=== PATIENT | female | born 1945 | race American Indian/Alaskan Native ===

== ENCOUNTER 2018-06-03 10:22 | Emergency (ER) | payer MEDICARE ==
--- NOTE | 2018-06-03 12:44 | Emergency Department Report ---
ED Lower Extremity HPI - General Chief Complaint: Extremity Injury, Lower Stated Complaint: RT LEG PAIN Time Seen by Provider: 06/03/18 11:55 Source: patient, family Mode of arrival: Wheelchair Limitations: Physical Limitation - History of Present Illness Initial Comments: [id number] female to emergency Department complaining of pain behind her right knee. She is visiting from [place] with her sister has a lot of stairs in her house, which she is not used to. States this is insistency 1. Abnormal stairs. She didn't filling a pulling sharp pain behind her right knee. She reports no falls. No numbness, tingling, no fever, chills, sweats, swelling. She reports no fall, no prolonged time sitting. She reports no history of any of any blood clots. Injury: Knee: Right Place: home Severity: mild Improves With: nothing Worsens With: weight bearing, movement, palpation Associated Symptoms: numbness, able to partially bear weight, ambulatory. denies: tingling - Related Data Allergies Allergy/AdvReac Type Severity Reaction Status Date / Time Penicillins Allergy Rash Verified 06/03/18 10:32 ED Review of Systems ROS: Stated complaint: RT LEG PAIN Other details as noted in HPI Constitutional: denies: chills, fever Eyes: denies: eye pain, eye discharge, vision change ENT: denies: ear pain, throat pain Respiratory: denies: cough, shortness of breath, wheezing Cardiovascular: denies: chest pain, palpitations Endocrine: no symptoms reported Gastrointestinal: denies: abdominal pain, nausea, diarrhea Genitourinary: denies: urgency, dysuria, discharge Musculoskeletal: myalgia. 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 Non aggressive lymphoma - Surgical History Past Surgical History?: No - Social History Smoking Status: Former Smoker Substance Use Type: Alcohol, Prescribed ED Physical Exam - General Limitations: Physical Limitation General appearance: alert, in no apparent distress - Head Head exam: Present: atraumatic, normocephalic - Eye Eye exam: Present: normal appearance, PERRL, EOMI Pupils: Present: normal accommodation - ENT ENT exam: Present: normal exam, mucous membranes moist - Neck Neck exam: Present: normal inspection, full ROM - Respiratory Respiratory exam: Present: normal lung sounds bilaterally. Absent: respiratory distress - Cardiovascular Cardiovascular Exam: Present: regular rate, normal rhythm. Absent: systolic murmur, diastolic murmur, rubs, gallop - GI/Abdominal GI/Abdominal exam: Present: soft, normal bowel sounds - Extremities Exam Extremities exam: Present: normal inspection, normal capillary refill. Absent: calf tenderness (no Homans sign, no cords sign. No bruising. No varicosities. No masses behind the popliteal region. There is tenderness with extension of her right leg and weightbearing. Knee normal. Varus and valgus. Normal patella) - Back Exam Back exam: Present: normal inspection - Neurological Exam Neurological exam: Present: alert, oriented X3 - Psychiatric Psychiatric exam: Present: normal affect, normal mood - Skin Skin exam: Present: warm, dry, intact, normal color. Absent: rash ED Course Vital Signs 06/03/18 10:33 Temperature 97.9 F Pulse Rate 89 Respiratory 18 Rate Blood Pressure 171/55 O2 Sat by Pulse 96 Oximetry ED Lower Extremity MDM - Differential Diagnosis hamstring strain, Larson's cyst, arthritis, tendinopathy Critical care attestation.: If time is entered above; I have spent that time in minutes in the direct care o f this critically ill patient, excluding procedure time. ED Disposition Clinical Impression: Leg pain Disposition: DC-01 TO HOME OR SELFCARE Is pt being admited?: No Does the pt Need Aspirin: No Condition: Stable Instructions: Arthralgia (ED) Referrals: NORAH COFFMAN [Other] - 3-5 Days
== END 2018-06-03 13:09 | disposition home or self-care (01) ==
LOC: ED 10:22
CPT/HCPCS: 99282